=== PATIENT | female | born 1950 | race Hispanic/Latino ===

== ENCOUNTER 2024-07-30 18:06 | Emergency (ER) | payer OTHER ==
--- OUTSIDE RECORDS SUMMARY | 2024-07-30 18:08 | XMS REPORT | Clinical Summary ---
Author Name Unknown Organization [facility] Address [address] [place] [address] Care Team Providers Care Medicare Insurance Specialist Name Role Phone Arthur Solano MD Unavailable [phone] Fariba Donaldson MD Primary Care Prov ider Jeffry Bolden MD Unavailable [phone] Allergies No known active allergies Medications levothyroxine (SYNTHROID, LEVOTHROID) 25 mcg tablet 05/23/2016 Active cholecalciferol, vitamin D3, (VITAMIN D3) 2,000 units tab tablet Take 2,000 Units by mouth. Active fish oil-omega-3 fatty acids 300-1,000 mg capsule Take 2 g by mouth daily. Active MDA NON FORMULARY REQUESTIndication s:OPC 3 antioxidant Active MDA NON FORMULARY REQUESTIndication s:Vit D with K Activ e multivitamin (multivitamin) tablet Take by mouth. Active glucosamine/chond r shi A sod (OSTEO BI-FLEX ORAL) Take by mouth. Active Surgical History Surgery Date Site/Laterality Comments COLONOSCOPY 06/10/2009 - 06/09/2010 VARICOSE VEIN SURGERY TUBAL LIGATION PAROTIDECTOMY 06/10/1970 - 06/09/1971 benign pathology Medical History Medical History Date Comments Peripheral vascular disease after babies born'73 -'[birth year] varicose veins, removed at [facility] 8-18 Cyst of breast 2009 on rt breast, vi sitied Dr. Clark, nothing serious noted Osteoporosis 2012- osteoarthritis Arthritis 2012- lower back Family History Medical History Relation Name Comments -Uterine cancer Maternal Aunt Kimberly Ace in 1958 Relation Name Status Comments Maternal Aunt Kimberly Ace Social History Tobacco Use Types Packs/Day Years Used Date Smoking Tobacco: Never Smokeless Tobacco: Never Comments:learned to smoke in college, never became a habit Alcohol Use Standard Drinks/Week Comments Yes 0 (1 standard drink = 0.6 oz pure alcohol) a mixed drink only very occasionally at dinner Comments Unknown Sex and Gender Information Value Date Recorded Sex Assigned at Not on file Legal Sex Female 4:22 PM [employer] Gender Identity Not on file Sexual Orientation Not on file Occupation Industry Job Start Date Job End Date retired Not on file Not on file Not on file Obstetrics History Comments Menarche aged 10 Menopause mid-50's Parity age 22 A0 Breast-feeding for 2 years OCP for < 1 year Denies HRT use Plan of Treatment Health Maintenance Due Date Last Done Comments Pneumococcal Vaccine: 50+ Years (1 of - PCV) 999 COVID-19 Vaccine (2023- season) 2024 Influenza Vaccine (#1) 2024 Insurance [place] [address] UHC MEDICARE ADVANTAGE [facility] MEDICARE ADVANTAGE Care Teams Medicare Insurance Specialist Relationship Specialty Start Date End Date Arthur Solano MD [address] [place] [address] [email or web address] PCP - External Referring Obstetrics/Gynecology 06/27/18 Fariba Donaldson MD [address] [place] [email or web address] PCP - General Breast Surgery 06/27/18 Jeffry Bolden MD [address] [facility] [place] [address] [email or web address] PCP - External Follow Up [facility] 07/08/18
--- NOTE | 2024-07-30 19:45 | RAD REPORT ---
EXAMINATION: XR LEFT KNEE CLINICAL INDICATION: PAIN TECHNIQUE: Multiple projections of the left knee were obtained. COMPARISON: No prior exam. FINDINGS: Left total knee arthroplasty is present. No evidence of hardware loosening. Small to moder ate suprapatellar joint effusion.
--- NOTE | 2024-07-30 19:45 | RAD REPORT ---
EXAM: XR RIGHT HAND HISTORY: Pain. PAIN COMPARISON: None TECHNIQUE: Multiple projections of the right hand submitted. FINDINGS: Prominent diffuse osteopenia is seen.. Fracture present with mild displacement of the proxi mal aspect of the proximal phalanx of the fourth and fifth finger. No dislocation.
--- NOTE | 2024-07-30 20:05 | ER ---
Nurse's Notes [facility] Name: Ivania Sauceda Age: 74 yrs Sex: Female : 1950 Arrival Date: 07/30/2024 Time: 18:06 Bed 16 Private MD: Diagnosis: Fracture of proximal phalanx of right fourth and fifth fingers;Left knee pain Presentation: 07/30 18:16 Chief complaint: Patient states: she was walking her dog this evening, when she was ap3 pulled and fell down. patient reports she caught herself with her right wrist and left leg. patient states she fell onto the edge of the concrete/grassy area. patients states her pain is currently a 7/10 on the pain scale. Coronavirus screen: At this time, the client does not indicate any symptoms associated with coronavirus-19. Ebola Screen: No symptoms or risks identified at this time. Initial Sepsis Screen: Does the patient meet any 2 criteria? No. Patient's initial sepsis screen is negative. Does the patient have a suspected source of infection? No. Patient's initial sepsis screen is negative. Risk Assessment: Do you want to hurt yourself or someone else? Patient reports no desire to harm self or others. Onset of symptoms was July 30, 2024 at 17:30. 18:16 Method Of Arrival: Wheelchair ap3 18:16 Acuity: MARLENI 3 ap3 Triage Assessment: 18:22 General: Appears uncomfortable, Behavior is calm, cooperative, appropriate for age. ap3 Pain: Complains of pain in right hand, right arm and left leg. Neuro: Level of Consciousness is awake, alert, obeys commands, Oriented to person, place, time, situation, Appropriate for age. Cardiovascular: Patient's skin is warm and dry. Respiratory: Airway is patent Respiratory effort is even, unlabored, Respiratory pattern is regular, symmetrical. Historical: - Allergies: 18:20 Lidocaine; ap3 - Home Meds: 18:20 levothyroxine oral [Active]; ap3 - Immunization history:: Client reports receiving the 2nd dose of the Covid vaccine. - Infectious Disease History:: Denies. - Social history:: Smoking status: Patient denies any tobacco usage or history of. - Family history:: not pertinent. Screenin:22 Abuse screen: Denies threats or abuse. Nutritional screening: No deficits noted. ap3 Tuberculosis screening: No symptoms or risk factors identified. 19:10 [facility] ED Fall Risk Assessment (Adult) History of falling in the last 3 months, rg5 including since admission No falls in past 3 months (0 pts) Confusion or Disorientation No (0 pts) Intoxicated or Sedated Yes (3 pts) Impaired Gait No (0 pts) Mobility Assist Device Used Yes (1 pt) Altered Elimination Yes (1 pt) Score/Fall Risk Level 0 - 2 = Low Risk Oriented to surroundings, Maintained a safe environment, Hourly rounding (assess needs \T\ fall precautionary measures) done. Assessment: 19:10 General: Appears in no apparent distress. comfortable, Behavior is calm, cooperative, rg5 appropriate for age. 19:10 Pain: Complains of pain in left leg Pain currently is 4 out of 10 on a pain scale. rg5 Quality of pain is described as aching. Neuro: Level of Consciousness is awake, alert, obeys commands, Oriented to person, place, time, situation. Cardiovascular: Denies chest pain. Respiratory: Airway is patent Trachea midline Respiratory effort is even, unlabored, Respiratory pattern is regular, symmetrical. GI: Abdomen is round non-distended, Abd is soft and non tender. : No signs and/or symptoms were reported regarding the genitourinary system. : No deficits noted. EENT: No deficits noted. Derm: Skin is intact, Skin is dry, Skin is normal. Musculoskeletal: Circulation, motion, and sensation intact. Range of motion: intact in all extremities. Vital Signs: 18:16 BP 135 / 79; Pulse 66; Resp 18; Temp 97.8; Pulse Ox 100% ; Weight 81.65 kg; Height 5 ap3 ft. 2 in. ; Pain 8/10; 18:36 BP 143 / 79 RA Sitting (auto/lg); Pulse 82 LA; Resp 16 S; Pulse Ox 99% on R/A; td1 19:10 BP 131 / 67; Pulse 64; Resp 18; Pain 4/10; rg5 20:30 BP 137 / 75; Pulse 65; Resp 18; Pulse Ox 99% on R/A; Pain 4/10; rg5 18:16 Body Mass Index 32.92 (81.65 kg, 157.48 cm) ap3 18:16 Pain Scale: Adult ap3 19:10 Pain Scale: Adult rg5 20:30 Pain Scale: Adult rg5 ED Course: 18:10 Patient arrived in ED. al6 18:11 Michele Suarez MD is Attending Physician. rt 18:18 Triage completed. ap3 18:23 Arm band placed on left wrist. ap3 18:36 Patient has correct armband on for positive identification. Side rails up X2. Warm td1 blanket given. Pulse ox on. NIBP on. 19:10 Provided Education on: POST ER CARE. rg5 19:10 No provider procedures requiring assistance completed. Patient did not have IV access rg5 during this emergency room visit. 19:37 Hand Right 3 View XRAY In Process Unspecified. EDMS 19:37 Knee Left 3 View XRAY In Process Unspecified. EDMS 20:03 Mike Ma MD is Referral Physician. rt 20:05 Allan Bender, RN is Primary Nurse. rg5 Administered Medications: No medications were administered Medication: 19:10 VIS not applicable for this client. rg5 Outcome: 20:04 Discharge ordered by MD. rt 20:35 Discharged to home via wheelchair, rg5 20:35 Condition: stable rg5 20:35 Instructed on discharge instructions, follow up and referral plans. Demonstrated understanding of instructions, follow-up care, 20:48 Patient left the ED. rg5 Signatures: Dispatcher [employer] EDMS Christine Goldberg, YAEL RN ap3 Michele Suarez MD MD rt Allan Bender, YAEL RN rg5 Lamar Harvey al6 Alonzo Norris td1
--- NOTE | 2024-07-30 20:05 | EDPHYS ---
Physician Documentation [facility] Name: Ivania Sauceda Age: 74 yrs Sex: Female : 1950 Arrival Date: 07/30/2024 Time: 18:06 Bed 16 Private MD: ED Physician Michele Suarez HPI: 07/30 19:38 This 74 yrs old Female presents to ER via Wheelchair with complaints of Fall rt Injury. 19:38 Patient presents to the ED with mechanical fall, was walking the dog, fell onto her rt outstretched right hand and hit the left knee, was able to walk following that. Denies other injury, acute complaints, symptoms are moderate in severity, aching nature, nonradiating, no other aggravating elevating factors.. Historical: - Allergies: 18:20 Lidocaine; ap3 - Home Meds: 18:20 levothyroxine oral [Active]; ap3 - Immunization history:: Client reports receiving the 2nd dose of the Covid vaccine. - Infectious Disease History:: Denies. - Social history:: Smoking status: Patient denies any tobacco usage or history of. - Family history:: not pertinent. ROS: 19:38 Constitutional: Negative for fever, chills, and weight loss, Neck: Negative for injury, rt pain, and swelling, Cardiovascular: Negative for chest pain, palpitations, and edema, Respiratory: Negative for shortness of breath, cough, wheezing, and pleuritic chest pain, Abdomen/GI: Negative for abdominal pain, nausea, vomiting, diarrhea, and constipation, Skin: Negative for injury, rash, and discoloration, Neuro: Negative for headache, weakness, numbness, tingling, and seizure, 19:38 MS/extremity: Positive for contusion, pain, Exam: 19:38 Constitutional: This is a well developed, well nourished patient who is awake, alert, rt and in no acute distress. Head/Face: Normocephalic, atraumatic. Chest/axilla: Normal chest wall appearance and motion. Nontender with no deformity. No lesions are appreciated. Cardiovascular: Regular rate and rhythm with a normal S1 and S2. No gallops, murmurs, or rubs. Normal PMI, no JVD. No pulse deficits. Respiratory: Lungs have equal breath sounds bilaterally, clear to auscultation and percussion. No rales, rhonchi or wheezes noted. No increased work of breathing, no retractions or nasal flaring. Abdomen/GI: Soft, non-tender, with normal bowel sounds. No distension or tympany. No guarding or rebound. No evidence of tenderness throughout. Skin: Warm, dry with normal turgor. Normal color with no rashes, no lesions, and no evidence of cellulitis. Neuro: Awake and alert, GCS 15, oriented to person, place, time, and situation. Cranial nerves II-XII grossly intact. Motor strength 5/5 in all extremities. Sensory grossly intact. Cerebellar exam normal. Normal gait. 19:38 Musculoskeletal/extremity: Contusion noted to the right hand, left knee, no significant tenderness palpation, deformities, pulses, motor, sensation are intact. Vital Signs: 18:16 BP 135 / 79; Pulse 66; Resp 18; Temp 97.8; Pulse Ox 100% ; Weight 81.65 kg; Height 5 ap3 ft. 2 in. ; Pain 8/10; 18:36 BP 143 / 79 RA Sitting (auto/lg); Pulse 82 LA; Resp 16 S; Pulse Ox 99% on R/A; td1 19:10 BP 131 / 67; Pulse 64; Resp 18; Pain 4/10; rg5 20:30 BP 137 / 75; Pulse 65; Resp 18; Pulse Ox 99% on R/A; Pain 4/10; rg5 18:16 Body Mass Index 32.92 (81.65 kg, 157.48 cm) ap3 18:16 Pain Scale: Adult ap3 19:10 Pain Scale: Adult rg5 20:30 Pain Scale: Adult rg5 MDM: 18:24 Medical Screening Exam initiated rt 20:21 Differential diagnosis: Fracture, contusion. Data reviewed: vital signs, nurses notes, rt radiologic studies. Independent interpretation of the following test(s) in the Emergency Department X-Ray: My interpretation is Proximal phalanx fracture seen on interpretation of x-ray images. Test considered but Not performed: CT: Denies head trauma, syncopal symptoms, CT scan of the head is not indicated. Counseling: I had a detailed discussion with the patient and/or guardian regarding the historical points, exam findings, and any diagnostic results supporting the discharge/admit diagnosis, radiology results, the need for outpatient follow up. Response to treatment: the patient's symptoms have markedly improved after treatment. 07/30 18:30 Order name: Hand Right 3 View XRAY; Complete Time: 19:56 rt 07/30 18:30 Order name: Knee Left 3 View XRAY; Complete Time: 19:56 rt 07/30 20:04 Order name: Finger Splint; Complete Time: 20:14 rt 07/30 20:04 Order name: Crutches; Complete Time: 20:14 rt Administered Medications: No medications were administered Disposition Summary: 07/30/24 20:04 Discharge Ordered Notes: Location: Home rt Problem: new rt Symptoms: have improved rt Condition: Stable rt Diagnosis - Fracture of proximal phalanx of right fourth and fifth fingers rt - Left knee pain rt Followup: rt - With: Mike Ma MD - When: 7 - 10 days - Reason: Discharge Instructions: - Discharge Summary Sheet rt - Finger Fracture, Adult rt - Acute Knee Pain, Adult rt Forms: - Medication Reconciliation Form rt - Antibiotic Education rt - Prescription Opioid Use rt - Patient Portal Instructions rt - Leadership Thank You Letter rt Signatures: Dispatcher [employer] Christine Moses RN RN ap3 Michele Suarez MD MD rt Corrections: (The following items were deleted from the chart) 18:30 18:30 Hand Right 3 View+RAD.RAD.BRZ ordered. EDMS EDMS 18:30 18:30 Knee Left 3 View+RAD.RAD.BRZ ordered. EDMS EDMS
[2024-07-31 19:30] VITALS: TEMP 97.8
[2024-07-31 19:32] VITALS: O2SAT 99
[2024-07-31 19:35] VITALS: BP 137/75
== END 2024-07-30 20:48 | disposition home or self-care (01) ==
LOC: ER 18:06
PROC: 2W3JX1Z Immobilization of Right Finger using Splint (ICD-10-PCS; principal; 2024-07-30)
DX: S62.614A Displaced fracture of proximal phalanx of right ring finger, initial encounter for closed fracture (principal); S62.616A Displaced fracture of proximal phalanx of right little finger, initial encounter for closed fracture; M25.562 Pain in left knee; W18.30XA Fall on same level, unspecified, initial encounter
CPT/HCPCS: 99283